=== PATIENT | female | born 1995 | race Caucasian/White ===

== ENCOUNTER → 2021-02-27 | Outpatient (REF) | LOC: COL.LAB 17:11 | DX: Z20.822 Contact with and (suspected) exposure to COVID-19 (principal) ==

== ENCOUNTER 2021-04-20 14:21 | Outpatient (RCR) | payer OTHER | END 2021-07-19 | disposition home or self-care (01) | LOC: WSOH | DX: Z77.21 Contact with and (suspected) exposure to potentially hazardous body fluids (principal); W46.0XXA Contact with hypodermic needle, initial encounter ==